=== PATIENT | male | born 1960 | race Caucasian/White ===

== ENCOUNTER → 2018-12-05 | Outpatient (CLI) | payer BC | LOC: MHCPAIN 08:11 | DX: G89.29 Other chronic pain (principal); M54.12 Radiculopathy, cervical region; M47.812 Spondylosis without myelopathy or radiculopathy, cervical region; R51 Headache | CPT/HCPCS: G0463 ==

== ENCOUNTER → 2018-12-07 | Outpatient (CLI) | payer BC | LOC: MHCPAIN 08:03 | DX: M54.12 Radiculopathy, cervical region (principal); M47.812 Spondylosis without myelopathy or radiculopathy, cervical region | CPT/HCPCS: J1100; Q9967 ==

== ENCOUNTER → 2018-12-19 | Outpatient (CLI) | payer BC | LOC: MHCPAIN 08:03 | DX: G89.29 Other chronic pain (principal); M54.12 Radiculopathy, cervical region; R51 Headache; M47.812 Spondylosis without myelopathy or radiculopathy, cervical region | CPT/HCPCS: G0463 ==

== ENCOUNTER 2019-01-10 07:51 | Day surgery (SDC) | payer BC ==
[~2019-01-10] VITALS: Ht 177.8 cm; Wt 88.0 kg
[2019-01-10] VITALS (7 sets, daily range): BP systolic 111–135; BP diastolic 79–94; PULSE 46–68; TEMP 97.7
[2019-01-10] MEDS ORDERED: ASPIRIN E.C. 8181 MG PO (08:09)
[2019-01-10] MEDS ORDERED: PRINIVIL40 MG PO (08:10)
[2019-01-10] MEDS ORDERED: SYNTHROID 0.0.025 MG PO (08:10)
[2019-01-10] MEDS ORDERED: NORVASC 10MG10 MG PO (08:10)
[2019-01-10] MEDS ORDERED: MASON NATURAL2000 IU PO (08:11)
[2019-01-10] MEDS ORDERED: LOPRESSOR 225 MG/TAB PO (08:11)
[2019-01-10] MEDS ORDERED: LIPITOR 10MG10 MG PO (08:12)
[2019-01-10] MEDS ORDERED: ELIQUIS 5MG PO (08:12)
[2019-01-10] MEDS ORDERED: NEURONTIN100 MG/CAP PO (08:15)
[2019-01-10 08:38] LABS: HEMATOCRIT 40.6 % (42.0-52.0); INR 1.6 (0.8-3.0); MEAN CELL VOLUME 87 fl (80.0-100.0); MEAN CORPUSCULAR HEMOGLOBIN 30 pg (27.0-31.0); MEAN CORPUSCULAR HGB CONC 35 g/dl (33.0-37.0); PLATELET COUNT 292 K/mm3 (130-400); PROTHROMBIN TIME 19.1 SECONDS (9.7-12.8); RED BLOOD COUNT 4.65 M/mm3 (4.20-5.60); REDCELL DISTRIBUTION WIDTH-CV 12.7 % (11.5-14.5)
[2019-01-10 08:40] LABS: PARTIAL THROMBOPLASTIN TIME 47.3 SECONDS (26.0-37.0)
[2019-01-10 08:43] LABS: CALCIUM 9.1 mg/dL (8.4-10.2); CREATININE, serum 1.07 (0.66-1.25); MAGNESIUM 1.9 mg/dL (1.6-2.3); POTASSIUM 4.1 mmol/L (3.4-5.0)
[2019-01-10] MEDS ORDERED: MULTAQ400 MG PO (09:11)
[2019-01-10 09:13] LABS: THYROID STIMULATING HORMONE 2.7 uIU/mL (0.465-4.680)
--- NOTE | 2019-01-10 11:05 | NUR ---
Pt is ready for departure. Pt care was assumed from Ysabel CEHEMA at 0935, at that time pt was awake and alert, resting comfortably on stretcher in sinus lidya. Post cardioversion EKG was obtained. pt was able to drink water with no problem, declined wanting a snack. prior to his departure he ambulated to bathroom and back with steady gait. IV was dc'd cath intact, dressing applied. pt was escorted to exit via wheelchair. written instructions regarding cardioversion discharge and moderate sedation were reviewed with pt and family. Also, new rx and f/u instructions reviewed. pt and family denied questions at time of departure.
== END 2019-01-10 11:25 | disposition home or self-care (01) ==
LOC: COL.CAR 07:51
PROVIDERS: Internal Medicine Cardiovascular Disease
DX: I48.0 Paroxysmal atrial fibrillation (principal); E78.00 Pure hypercholesterolemia, unspecified; I10 Essential (primary) hypertension; E78.2 Mixed hyperlipidemia; E03.9 Hypothyroidism, unspecified; Z88.1 Allergy status to other antibiotic agents; Z79.01 Long term (current) use of anticoagulants; Z82.49 Family history of ischemic heart disease and other diseases of the circulatory system; Z79.82 Long term (current) use of aspirin; Z82.5 Family history of asthma and other chronic lower respiratory diseases
CPT/HCPCS: J2250; J2704; J7120

== ENCOUNTER 2019-02-14 09:59 | Emergency (ER) | payer BC ==
[~2019-02-14] VITALS: Ht 177.8 cm; Wt 86.4 kg
[~2019-02-14 09:59] MED LIST: ASPIRIN E.C. 8181 MG PO; ELIQUIS 5MG PO; LIPITOR 10MG10 MG PO; LOPRESSOR 225 MG/TAB PO; MASON NATURAL2000 IU PO; MULTAQ400 MG PO; NEURONTIN100 MG/CAP PO; NORVASC 10MG10 MG PO; PRINIVIL40 MG PO; SYNTHROID 0.0.025 MG PO
[2019-02-14 10:08] VITALS: TEMP 98.3
[2019-02-14 10:35] LABS: BASO # 0.1 (0.0-0.2); BASO % 2.4 % (0.0-2.0); EOS # 0.7 (0.0-0.7); EOS % 11.3 % (0-4.0); GRAN % 50.6 % (42.2-75.2); HEMATOCRIT 44.5 % (42.0-52.0); HEMOGLOBIN 15.1 g/dl (13.5-18.0); LYMPH # 1.5 (1.2-3.4); LYMPH % 24.5 % (20.0-51.0); MEAN CELL VOLUME 86 fl (80.0-100.0); MEAN CORPUSCULAR HEMOGLOBIN 29 pg (27.0-31.0); MEAN CORPUSCULAR HGB CONC 34 g/dl (33.0-37.0); MEAN PLATELET VOLUME 9.9 fl (7.4-10.4); MONO # 0.7 (0.1-0.6); MONO % 10.9 % (1.7-9.3); PLATELET COUNT 275 K/mm3 (130-400); RED BLOOD COUNT 5.16 M/mm3 (4.20-5.60); REDCELL DISTRIBUTION WIDTH-CV 12.3 % (11.5-14.5)
[2019-02-14 10:42] LABS: INR 1.3 (0.8-3.0); PROTHROMBIN TIME 15.7 SECONDS (9.7-12.8)
[2019-02-14 10:45] LABS: ALANINE AMINOTRANSFERASE 35 U/L (21-72); ALBUMIN 4.6 gm/dL (3.5-5.0); ALKALINE PHOSPHATASE 49 U/L (50-136); ANION GAP 10 mmol/L (7-16); AST,SGOT 22 U/L (15-37); BILIRUBIN,TOTAL 0.5 mg/dL (0.0-1.0); BLOOD UREA NITROGEN 13 mg/dL (9-20); CALCIUM 9.1 mg/dL (8.4-10.2); CARBON DIOXIDE 23 mmol/L (22-30); CHLORIDE 106 mmol/L (98-107); CREATININE, serum 0.95 (0.66-1.25); GLUCOSE 94 mg/dL (74-106); LIPASE 107 U/L (23-300); POTASSIUM 4.2 mmol/L (3.4-5.0); SODIUM 139 mmol/L (137-145); TOTAL PROTEIN 7.5 gm/dL (6.4-8.2)
[2019-02-14 10:54] LABS: D-DIMER < 200.00 ng/mLDDu (200-230)
[2019-02-14 11:02] LABS: TROPONIN-I < 0.012 ng/mL (0.000-0.035)
[2019-02-14 14:34] VITALS: BP 123/79; PULSE 48
== END 2019-02-14 14:34 | disposition home or self-care (01) ==
LOC: COL.ER 09:59
PROVIDERS: Emergency Medicine
DX: R07.81 Pleurodynia (principal); I48.91 Unspecified atrial fibrillation; Z79.01 Long term (current) use of anticoagulants
CPT/HCPCS: J1885; J7030

== ENCOUNTER → 2019-08-07 | Outpatient (CLI) | payer BC ==
[2019-08-07 13:29] LABS: SYNOVIAL FL. MONONUCLEAR 77.8 % (0-75); SYNOVIAL FLUID RBC 330000 /mm3 (0-0); SYNOVIAL FLUID WBC 207 /mm3 (200-600)
[2019-08-07 13:30] LABS: SYNOVIAL FLUID APPEARANCE BLOODY; SYNOVIAL FLUID COLOR RED
== END ==
LOC: ZCOL.LAB 12:19
PROVIDERS: Orthopaedic Surgery
DX: Z01.89 Encounter for other specified special examinations (principal)

== ENCOUNTER → 2019-09-25 | Outpatient (CLI) | payer BC | LOC: MHCPAIN 09:13 | DX: M47.812 Spondylosis without myelopathy or radiculopathy, cervical region (principal); M54.2 Cervicalgia; R51 Headache; G89.29 Other chronic pain; M54.12 Radiculopathy, cervical region | CPT/HCPCS: G0463 ==

== ENCOUNTER → 2019-10-11 | Outpatient (CLI) | payer BC | LOC: MHCPAIN 08:49 | DX: M47.812 Spondylosis without myelopathy or radiculopathy, cervical region (principal); M54.2 Cervicalgia | CPT/HCPCS: J1100; Q9967 ==

== ENCOUNTER → 2019-10-23 | Outpatient (CLI) | payer BC | LOC: MHCPAIN 08:58 | DX: M47.812 Spondylosis without myelopathy or radiculopathy, cervical region (principal); M54.2 Cervicalgia; M54.81 Occipital neuralgia; R51 Headache | CPT/HCPCS: G0463 ==

== ENCOUNTER → 2020-01-24 | Outpatient (CLI) | payer BC | LOC: COL.PUL 09:44 | DX: R05 Cough (principal); R06.02 Shortness of breath | CPT/HCPCS: J7674 ==

== ENCOUNTER 2022-03-05 12:53 | Day surgery (SDC) | payer BC ==
[~2022-03-05] VITALS: Ht 177.8 cm; Wt 90.6 kg
[2022-03-05] MEDS ORDERED: PRINIVIL10 MG PO (13:42)
[2022-03-05] MEDS ORDERED: SYNTHROID0.088 MG/T PO (13:43)
[2022-03-05] MEDS ORDERED: ARTHROTEC 775 MG/TAB PO (13:44)
[2022-03-05] MEDS ORDERED: ROBAXIN 75750 MG/TAB PO (13:44)
[2022-03-05] MEDS ORDERED: DEPAKOTE ER 25250 MG PO (13:45)
[2022-03-05] MEDS ORDERED: CYMBALTA 30MG30 MG PO (13:45)
[2022-03-05] MEDS ORDERED: NEXLIZET 180-11 EACH PO (13:46)
[2022-03-05 13:57] VITALS: BP 124/90; PULSE 56; TEMP 97.2
[2022-03-05 14:36] VITALS: BP 105/72; PULSE 55; TEMP 97.5
--- NOTE | 2022-03-05 14:36 | NUR ---
PATIENT AMBULATED TO THE CHAIR WITH STANDBY ASSIST. PATIENT ALERT AND ORIENTED, DENIES PAIN AND NAUSEA. BREATHING REGULAR AND UNLABORED. SEE CHART FOR VITALS. NURSE HANDOFF COMPLETED IN ROOM. PATIENT HAD CRANBERRY JUICE AND A MUFFIN, BOTH TOLERATED WELL. CALL LIGHT IN REACH.
[2022-03-05 14:45] VITALS: BP 113/79; PULSE 54
[2022-03-05 15:00] VITALS: BP 127/76; PULSE 56
--- NOTE | 2022-03-05 15:00 | NUR ---
PATIENT SPOKE ABOUT THE PROCEDURE WITH . DISCHARGE EDUCATION COMPLETED WITH PRINTED EDUCATION SENT HOME WITH PATIENT. BOTH PATIENT AND SPOUSE, DAKOTAH, VERBALIZED UNDERSTANDING OF TEACHING. IV REMOVED. PATIENT DISCHARGED HOME WITH [facility].
== END 2022-03-05 15:12 | disposition home or self-care (01) ==
LOC: SDCO 12:53
DX: K52.832 Lymphocytic colitis (principal); A09 Infectious gastroenteritis and colitis, unspecified; K52.1 Toxic gastroenteritis and colitis; I10 Essential (primary) hypertension; I48.91 Unspecified atrial fibrillation; G47.33 Obstructive sleep apnea (adult) (pediatric)
CPT/HCPCS: J2704; J7120

== ENCOUNTER 2023-03-11 08:59 | Day surgery (SDC) | payer BC ==
[~2023-03-11] VITALS: Ht 175.3 cm; Wt 90.6 kg
[~2023-03-11 08:59] MED LIST changes: +ARTHROTEC 775 MG/TAB PO; +CYMBALTA 30MG30 MG PO; +DEPAKOTE ER 25250 MG PO; +NEXLIZET 180-11 EACH PO; +Ondansetron 4 MG/2 ML VIAL IV PRN; +PRINIVIL10 MG PO; +ROBAXIN 75750 MG/TAB PO; +SYNTHROID0.088 MG/T PO
--- NOTE | 2023-03-11 09:05 | NUR ---
PATIENT AMBULATED TO CHAIR WITH STEADY GAIT, ASSIST OF 2. ALERT AND AWAKE. DENIES PAIN, NAUSEA AND SHORTNESS OF BREATH. BREATHING REGULAR AND UNLABORED ON ROOM AIR. SKIN WARM AND DRY. IV IN PLACE. NURSE HANDOFF COMPLETED IN ROOM. SEE CHART FOR VITAL SIGNS. PATIENT HAD APPLE JUICE AND CHOCOLATE PUDDING. BOTH FOOD AND DRINK TOLERATED WELL. CALL LIGHT IN REACH. MOTHER, AMANDA, PRESENT IN ROOM.
--- NOTE | 2023-03-11 09:37 | NUR ---
0915: DR. SANTIAGO MET WITH PATIENT AND AMANDA IN ROOM TO DISCUSS PROCEDURE. 0931: DISCHARGE TEACHING COMPLETED WITH PRINTED EDUCATION AND INSTRUCTIONS SENT HOME WITH PATIENT. PATIENT VERBALIZED UNDERSTANDING OF TEACHING. 0932: IV REMOVED. GAUZE AND COBAN PLACED OVER SITE. 0937: PATIENT DISCHARGED HOME WITH [facility].
[2023-03-11] MEDS ORDERED: LR 1,000 ML IV SCH (09:45)
[2023-03-11] MEDS ORDERED: QULIPTA60 MG PO (10:06)
[2023-03-11] MEDS ORDERED: DURICEF 500MG500 MG PO (10:08)
[2023-03-11] MEDS ORDERED: IRON TABLETS325 MG PO (10:12)
[2023-03-11] MEDS ORDERED: NAPROSYN500 MG (10:14)
[2023-03-11] MEDS ORDERED: LYRICA200 MG (10:15)
[2023-03-11] MEDS ORDERED: NURTEC ODT75 MG PO (10:16)
[2023-03-11] MEDS ORDERED: ZANAFLEX2 MG PO (10:16)
[2023-03-11] MEDS ORDERED: Lidocaine PF 2% (20 MG/ML) 5 ML VIAL ONE (11:16)
[2023-03-11 11:50] VITALS: BP 106/75; PULSE 59; TEMP 97
--- NOTE | 2023-03-11 11:50 | NUR ---
PATIENT AMBULATED TO CHAIR WITH STEADY GAIT, ASSIST OF 2. ALERT AND AWAKE. DENIES PAIN, NAUSEA AND SHORTNESS OF BREATH. BREATHING REGULAR AND UNLABORED ON ROOM AIR. SKIN WARM AND DRY. IV IN PLACE. NURSE HANDOFF COMPLETED IN ROOM. SEE CHART FOR VITAL SIGNS. PATIENT HAD WATER AND CHOCOLATE PUDDING. BOTH FOOD AND DRINK TOLERATED WELL. NO DYSPHAGIA. CALL LIGHT IN REACH. SPOUSE, DAKOTAH, PRESENT IN ROOM.
[2023-03-11 12:00] VITALS: BP 129/84; PULSE 52
[2023-03-11 12:15] VITALS: BP 141/86; PULSE 49
[2023-03-11 12:30] VITALS: BP 131/73; PULSE 51
--- NOTE | 2023-03-11 12:50 | NUR ---
1230: DR. JORDAN MET WITH PATIENT AND SPOUSE IN ROOM TO DISCUSS PROCEDURE. DISCHARGE TEACHING COMPLETED WITH PRINTED EDUCATION AND INSTRUCTIONS SENT HOME WITH PATIENT. PATIENT AND SPOUSE VERBALIZED UNDERSTANDING OF TEACHING. 1243: IV REMOVED. GAUZE AND COBAN PLACED OVER SITE. 1250: PATIENT DISCHARGED HOME WITH [facility].
[2023-03-11 14:57] VITALS: BP 132/83; PULSE 54; TEMP 97.7
--- NOTE | 2023-03-11 15:00 | NUR ---
0953 Pt ambulatory to bay 5 with a steady gait, breathing even and unlabored. Pt is alert and oriented, accompanied by his . Consents reviewed and signed by pt. IV established. LR infusing via gravity. Call chan in reach. Warm blanket provided.
== END 2023-03-11 12:50 | disposition home or self-care (01) ==
LOC: SDCO 08:59
DX: D50.0 Iron deficiency anemia secondary to blood loss (chronic) (principal); G47.33 Obstructive sleep apnea (adult) (pediatric)
CPT/HCPCS: J2704; J7120